=== PATIENT | male | born 1955 | race Caucasian/White ===

== ENCOUNTER → 2019-05-22 | Outpatient (CLI) | payer BC | LOC: GMATM 15:44 | PROVIDERS: ATTEND Nurse Practitioner Family | DX: I10 Essential (primary) hypertension (principal) ==

== ENCOUNTER → 2020-02-12 | Outpatient (CLI) | payer MEDICARE | LOC: GMAL 16:12 | PROVIDERS: ATTEND Family Medicine | DX: M10.071 Idiopathic gout, right ankle and foot (principal); Z79.899 Other long term (current) drug therapy ==

== ENCOUNTER → 2020-09-28 | Outpatient (CLI) | payer MEDICARE | LOC: GMAL 10:18 | PROVIDERS: ATTEND Family Medicine | DX: M10.071 Idiopathic gout, right ankle and foot (principal); I10 Essential (primary) hypertension ==